=== PATIENT | female | born 1965 | race Hispanic/Latino ===

== ENCOUNTER 2017-09-15 06:40 | Emergency (ER) | payer SELFPAY ==
[2017-09-15] MEDS ORDERED: Ketorolac Tromethamine 60 MG/2 ML VIAL ONE (06:51)
== END 2017-09-15 07:25 | disposition home or self-care (01) ==
LOC: ERS 06:40
DX: G56.03 Carpal tunnel syndrome, bilateral upper limbs (principal); F32.9 Major depressive disorder, single episode, unspecified
CPT/HCPCS: 29125; 96372; J1885

== ENCOUNTER 2019-06-18 17:18 | Emergency (ER) | payer OTHER, SELFPAY ==
[2019-06-18] MEDS ORDERED: Ibuprofen 800 MG TAB ONE (18:24)
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
== END 2019-06-18 18:30 | disposition home or self-care (01) ==
LOC: ERS 17:18
DX: M25.512 Pain in left shoulder (principal); F32.9 Major depressive disorder, single episode, unspecified; V89.2XXA Person injured in unspecified motor-vehicle accident, traffic, initial encounter

== ENCOUNTER 2020-12-29 09:13 | Emergency (ER) | payer SELFPAY | END 2020-12-29 10:22 | disposition home or self-care (01) | LOC: ERS 09:13 | DX: L27.0 Generalized skin eruption due to drugs and medicaments taken internally (principal); T50.B95A Adverse effect of other viral vaccines, initial encounter; Z87.19 Personal history of other diseases of the digestive system | CPT/HCPCS: 99282 ==

== ENCOUNTER 2023-05-21 18:45 | Emergency (ER) | payer SELFPAY ==
[2023-05-21 19:53] LABS: SARS-CoV-2 NAA Rapid Test Not Detected (NotDetected)
== END 2023-05-21 21:08 | disposition home or self-care (01) ==
LOC: ERS 18:45
DX: J11.1 Influenza due to unidentified influenza virus with other respiratory manifestations (principal); K80.20 Calculus of gallbladder without cholecystitis without obstruction; Z55.6 Problems related to health literacy
CPT/HCPCS: 99283